=== PATIENT | male | born 1985 | race Caucasian/White ===

== ENCOUNTER 2018-05-31 22:25 | Emergency (ER) | payer SELFPAY ==
[~2018-05-31] VITALS: Ht 170.2 cm; Wt 77.3 kg
[2018-05-31 22:35] VITALS: Ht 170.2 cm; Wt 77.3 kg
--- NOTE | 2018-06-01 04:01 | ERD ---
ER Documentation Chief Complaint Chief Complaint BIB RA89,fd in the bus stop,heroin overdose,2 Narcan,10 mg Versed HPI This is a 33-year-old male comes in with complaints of heroin overdose. He was found slumped over with marijuana paraphernalia around by EMS. He was given 2 mg of Narcan and when he came to he was very combative so EMS given Versed prior to arrival. Upon arrival in the ER the patient is lethargic but arousable. Obvious track hall noted on his arms. ROS All systems reviewed and are negative except as per history of present illness. Allergies Allergies: Coded Allergies: Unknown: Unable to obtain (Unverified , 05/31/18) PMhx/Soc Medical and Surgical Hx: Unable to obtain Smoking Status: Unknown if ever smoked Physical Exam Vitals Vital Signs Date Temp Pulse Resp B/P (MAP) Pulse Ox O2 O2 Flow FiO2 Time Delivery Rate 06/01/18 61 12 114/70 97 Room Air 03:04 (85) 06/01/18 72 12 109/68 97 Room Air 01:02 (82) 05/31/18 83 14 101/57 96 Room Air 23:30 (72) 05/31/18 97.7 106 19 98/59 (72) 97 22:35 Physical Exam Const: No acute distress Head: Atraumatic Eyes: Normal Conjunctiva ENT: Normal External Ears, Nose and Mouth. Neck: Full range of motion. No meningismus. Resp: Clear to auscultation bilaterally Cardio: Regular rate and rhythm, no murmurs Abd: Soft, non tender, non distended. Normal bowel sounds Skin: No petechiae or rashes Back: No midline or flank tenderness Ext: No cyanosis, or edema Neur: Awake and alert Psych: Normal Mood and Affect Procedures/MDM Medical decision making: The patient essentially was a heroin abuser who accidentally overdosed. He denies suicidal homicidal ideation. At this point is clinically stable for outpatient management. He has been advised to stop using drugs. Patient will follow-up with primary care physician. Return for worsening symptoms. Departure Diagnosis: Primary Impression: Accidental overdose Encounter type: initial encounter Qualified Codes: T50.901A - Poisoning by unspecified drugs, medicaments and biological substances, accidental (unintentional), initial encounter Condition: Stable BLAYNE PONCE HariLulu Jun 01, 2018 04:01
[2018-06-01 05:25] VITALS: BP 102/66; PULSE 65; RESP 20
== END 2018-06-01 05:30 | disposition home or self-care (01) ==
LOC: E/R 22:25
DX: T50.7X1A Poisoning by analeptics and opioid receptor antagonists, accidental (unintentional), initial encounter (principal); R40.2142 Coma scale, eyes open, spontaneous, at arrival to emergency department; R40.2352 Coma scale, best motor response, localizes pain, at arrival to emergency department
CPT/HCPCS: 99283